=== PATIENT | female | born 1965 | race Caucasian/White ===

== ENCOUNTER 2018-10-11 10:28 | Outpatient (CLI) | payer BC | END 2018-10-11 10:29 | disposition home or self-care (01) | LOC: BICMAMMO 10:28 | PROVIDERS: ATTEND Obstetrics & Gynecology | DX: Z12.31 Encounter for screening mammogram for malignant neoplasm of breast (principal); R92.1 Mammographic calcification found on diagnostic imaging of breast | CPT/HCPCS: 77063; 77067 ==

== ENCOUNTER 2024-09-28 10:34 | Outpatient (CLI) | payer BC ==
[2024-09-28 12:11] LABS: #Basophils 0.03 10x3/uL (0.0-0.2); %Basophils 0.4 % (0.0-1.0); %Lymphocytes 22.1 % (21.0-51.0); %Monocytes 9.6 % (0.0-10.0); %Neutrophils 66.6 % (42.0-75.0); Hematocrit 42.4 % (36.0-47.0); Hemoglobin 14.8 g/dL (12.0-16.0); Mean Corpuscular HGB CONC 34.9 g/dL (32.0-36.0); Mean Corpuscular Hemoglobin 35.2 pg (27.0-31.0); Mean Corpuscular Volume 100.7 fL (78.0-98.0); Mean Platelet Volume 9.7 fL (7.4-10.4); Platelet Count 254 10x3/uL (130-400); RBC Distribution Width 11.8 % (11.5-14.5); Red Blood Cell (RBC) Count 4.21 mill/uL (4.20-5.40)
[2024-09-28 12:24] LABS: ALT (SGPT) 30 U/L (Less than 34); AST (SGOT) 37 U/L (11-34); Albumin 4.5 g/dL (3.1-4.5); Alkaline Phosphatase 58 U/L (40-110); Anion Gap 11 mmol/L (10-20); BUN (Urea Nitrogen) 13 mg/dL (9.8-20.1); Bilirubin, Direct 0.2 mg/dL (0.1-0.3); Bilirubin, Total 0.6 mg/dL (0.3-1.2); Calc. Creatinine Clearance 0 mL/min (70-130); Calcium 9.9 mg/dL (7.8-10.44); Carbon Dioxide 29 mmol/L (22-29); Chloride 107 mmol/L (98-107); Estimated GFR 83; Glucose 84 mg/dL (70-105); Potassium 3.9 mmol/L (3.5-5.1); Protein, Total 7.3 g/dL (6.0-8.3); Sodium 143 mmol/L (136-145)
[2024-09-28 12:32] LABS: Prothrombin Time 13.6 sec (12.0-14.7)
[2024-09-28 12:33] LABS: PTT 29.2 sec (22.9-36.1)
== END 2024-09-28 10:35 | disposition home or self-care (01) ==
LOC: LABBT 10:34
PROVIDERS: ATTEND Neurological Surgery
DX: Z01.818 Encounter for other preprocedural examination (principal); M54.12 Radiculopathy, cervical region
CPT/HCPCS: 80048; 80076; 93005; 93010

== ENCOUNTER 2024-10-05 05:35 | Day surgery (SDC) | payer BC ==
[2024-09-28 10:41] VITALS: BMI 22.1
[2024-10-05] MEDS ORDERED: Thrombin 5000 UNITS/5 ML VIAL ONE (06:10)
[2024-10-05] MEDS ORDERED: fentaNYL PF 100 MCG/2 ML SYRINGE ONE ×2 (06:14→08:54)
[2024-10-05] MEDS ORDERED: PROPOFOL 0 ML ONE (06:15)
[2024-10-05] MEDS ORDERED: Lidocaine 1% PF 5 ML VIAL ONE (06:20)
[2024-10-05] MEDS ORDERED: Rocuronium Bromide 10 MG/ML (10ML VIAL) ONE (06:20)
[2024-10-05] MEDS ORDERED: CEFAZOLIN 2 GM VIAL ONE ×2 (06:40→11:44)
[2024-10-05] MEDS ORDERED: PROPOFOL 20 ML ONE (06:41)
[2024-10-05] MEDS ORDERED: Bupivacaine PF 0.5% 30 ML VIAL ONE (06:41)
[2024-10-05] MEDS ORDERED: Lidocaine 2% PF 5 ML VIAL ONE ×3 (06:41→10:36)
[2024-10-05] MEDS ORDERED: Midazolam HCl 2 mg/2 ml Vial ONE (06:44)
[2024-10-05] MEDS ORDERED: Sterile Water 10 ML ONE ×2 (07:17→09:22)
[2024-10-05] MEDS ORDERED: PHENYLEPHRINE-NS 100 MCG/ML 10 ML SYRINGE ONE ×2 (07:39→09:47)
[2024-10-05] MEDS ORDERED: Dexamethasone 20 MG/5 ML VIAL ONE ×2 (07:47→09:43)
[2024-10-05] MEDS ORDERED: Ondansetron PF 4 MG/2 ML Vial ONE ×2 (07:47→09:43)
[2024-10-05] MEDS ORDERED: ePHEDrine Sulfate 50 MG/10 ML VIAL ONE ×2 (08:06→09:52)
[2024-10-05] MEDS ORDERED: SUGAMMADEX SODIUM 200 MG/2 ML VIAL ONE ×2 (08:21→10:35)
[2024-10-05] MEDS ORDERED: MINERAL OIL/WHITE PETROLATUM 3.5 GM TUBE ONE (08:28)
[2024-10-05] MEDS ORDERED: HYDROmorphone 0.5 MG/0.5 ML SYRINGE ONE (08:54)
[2024-10-05] MEDS ORDERED: Cyclobenzaprine 10 MG TAB ONE (09:23)
[2024-10-05] MEDS ORDERED: Phenylephrine 10 MG/ML VIAL ONE (10:15)
[2024-10-05] MEDS ORDERED: Labetalol HCl 100 MG/20 ML VIAL ONE (10:49)
[2024-10-05] MEDS ORDERED: Sodium Chloride 0.9% 100 ML ONE (11:44)
== END 2024-10-05 13:00 | disposition home or self-care (01) ==
LOC: SDC 05:35
PROVIDERS: ATTEND Neurological Surgery
PROC: 0RG10A0 Fusion of Cervical Vertebral Joint with Interbody Fusion Device, Anterior Approach, Anterior Column, Open Approach (ICD-10-PCS; principal; 2024-10-05)
DX: M54.12 Radiculopathy, cervical region (principal); J30.2 Other seasonal allergic rhinitis; E78.5 Hyperlipidemia, unspecified; I10 Essential (primary) hypertension; Z79.899 Other long term (current) drug therapy; Z87.59 Personal history of other complications of pregnancy, childbirth and the puerperium; Z98.51 Tubal ligation status
CPT/HCPCS: C1713; C1889; J0665; J1100; J1171; J2250; J2371; J2405; J2704